=== PATIENT | male | born 1960 | race Hispanic/Latino ===

== ENCOUNTER 2020-08-18 15:14 | Emergency (ER) | payer SELFPAY ==
[2020-08-18 15:44] LABS: Absolute Lymphocytes (CBC) 3.1 K/uL (0.7-4.9); Basophils % 0.6 % (0-1.3); Hematocrit 43.7 % (39.6-49.0); Lymphocytes % 36.7 % (15.3-44.8); MPV 8.4 fL (7.6-11.3)
[2020-08-18] MEDS ORDERED: MORPHINE 4 MG/ML SYR ONE (15:50)
[2020-08-18] MEDS ORDERED: ONDANSETRON 4 MG/2 ML VIAL ONE (15:51)
[2020-08-18] MEDS ORDERED: TETANUS & DIPHTHERIA TOX,ADULT 0.5 ML VIAL ONE (15:51)
[2020-08-18] MEDS ORDERED: CROTALIDAE ANTIVENIM 1 GM VIAL IV ONE (15:52)
[2020-08-18] MEDS ORDERED: CEFAZOLIN/SWI 1gm 1 GM/10 ML SYR ONE (15:52)
[2020-08-18] MEDS ORDERED: NA CHLORIDE 0.9% 1,000 ML ONE (15:52)
[2020-08-18 16:02] LABS: ALT/SGPT 63 U/L (12-78); AST/SGOT 30 U/L (15-37); Albumin 4.5 g/dL (3.4-5.0); Alkaline Phosphatase 78 U/L (45-117); BUN Blood Urea Nitrogen 25 mg/dL (7-18); Bicarbonate 21 mmol/L (21-32); Bilirubin Direct 0.2 mg/dL (0-0.2); Bilirubin Total 0.4 mg/dL (0.2-1.0); Glucose Level 112 mg/dL (74-106); Magnesium 2.2 mg/dL (1.8-2.4); NT PRO-BNP 125 pg/mL (<125); Potassium 3.6 mmol/L (3.5-5.1); Protein, Total 8.4 g/dL (6.4-8.2); Sodium Level 142 mmol/L (136-145); Troponin (Emerg Dept Use Only) < 0.02 ng/mL (0.0-0.045)
[2020-08-18] MEDS ORDERED: NA CHLORIDE 0.9% 250 ML ONE (16:06)
--- NOTE | 2020-08-18 16:13 | RAD REPORT ---
EXAM DESCRIPTION: RAD - Hand Right 3 View - 08/18/2020 4:08 pm CLINICAL HISTORY: PAIN COMPARISON: No comparisons FINDINGS: Moderate soft tissue swelling is seen about the hand. No fracture, dislocation or radiopaq ue foreign body.
--- NOTE | 2020-08-18 16:13 | RAD REPORT ---
EXAM DESCRIPTION: RAD - Chest Single View - 08/18/2020 4:08 pm CLINICAL HISTORY: COUGH Chest pain. COMPARISON: No comparisons FINDINGS: Portable technique limits examination quality. The lungs are grossly clear. The heart is normal in size. No displaced fractures. IMPRESSION: No acute intrathoracic process suspected.
--- NOTE | 2020-08-18 16:15 | EDPHYS ---
Physician Documentation [facility] Name: Jesse Pillai Age: 60 yrs Sex: Male : 1960 Arrival Date: 08/18/2020 Time: 15:15 Bed 4 Private MD: ED Physician Maximo Vazquez HPI: 08/18 16:05 This 60 yrs old Male presents to ER via Unassigned with complaints of Snake tito bite. 16:05 The patient was bitten on the dorsal aspect of proximal phalanx of right middle finger. tito Onset: The symptoms/episode began/occurred just prior to arrival. Animal information: The snake had the markings of a copperhead snake. Secondary to the bite the patient reports erythema, pain, swelling. Associated signs and symptoms: Pertinent positives: swelling at site. Severity of symptoms: At their worst the symptoms were moderate. The patient has not experienced similar symptoms in the past. Historical: - Allergies: 15:20 No Known Allergies; jl7 - Home Meds: 15:20 None [Active]; jl7 - PMHx: 15:20 None; jl7 - PSHx: 15:20 None; jl7 - Immunization history:: Adult Immunizations not up to date. - Social history:: Smoking status: Patient denies any tobacco usage or history of. - Family history:: not pertinent. ROS: 16:05 Constitutional: Negative for fever, chills, and weight loss, Eyes: Negative for injury, tito pain, redness, and discharge, ENT: Negative for injury, pain, and discharge, Neck: Negative for injury, pain, and swelling, Cardiovascular: Negative for chest pain, palpitations, and edema, Respiratory: Negative for shortness of breath, cough, wheezing, and pleuritic chest pain, Abdomen/GI: Negative for abdominal pain, nausea, vomiting, diarrhea, and constipation, Back: Negative for injury and pain, : Negative for injury, bleeding, discharge, and swelling, Skin: Negative for injury, rash, and discoloration, Neuro: Negative for headache, weakness, numbness, tingling, and seizure, Psych: Negative for depression, anxiety, suicide ideation, homicidal ideation, and hallucinations, Allergy/Immunology: Negative for hives, rash, and allergies, Endocrine: Negative for neck swelling, polydipsia, polyuria, polyphagia, and marked weight changes, Hematologic/Lymphatic: Negative for swollen nodes, abnormal bleeding, and unusual bruising. 16:05 MS/extremity: Positive for decreased range of motion, pain, swelling, tenderness, warmth, of the dorsal aspect of proximal phalanx of right middle finger and dorsum of right hand. Exam: 16:05 Constitutional: This is a well developed, well nourished patient who is awake, alert, tito and in no acute distress. Head/Face: Normocephalic, atraumatic. Eyes: Pupils equal round and reactive to light, extra-ocular motions intact. Lids and lashes normal. Conjunctiva and sclera are non-icteric and not injected. Cornea within normal limits. Periorbital areas with no swelling, redness, or edema. ENT: Nares patent. No nasal discharge, no septal abnormalities noted. Tympanic membranes are normal and external auditory canals are clear. Oropharynx with no redness, swelling, or masses, exudates, or evidence of obstruction, uvula midline. Mucous membranes moist. Neck: Trachea midline, no thyromegaly or masses palpated, and no cervical lymphadenopathy. Supple, full range of motion without nuchal rigidity, or vertebral point tenderness. No Meningismus. Chest/axilla: Normal chest wall appearance and motion. Nontender with no deformity. No lesions are appreciated. Cardiovascular: Regular rate and rhythm with a normal S1 and S2. No gallops, murmurs, or rubs. Normal PMI, no JVD. No pulse deficits. Respiratory: Lungs have equal breath sounds bilaterally, clear to auscultation and percussion. No rales, rhonchi or wheezes noted. No increased work of breathing, no retractions or nasal flaring. Abdomen/GI: Soft, non-tender, with normal bowel sounds. No distension or tympany. No guarding or rebound. No evidence of tenderness throughout. Back: No spinal tenderness. No costovertebral tenderness. Full range of motion. Male : Normal genitalia with no discharge or lesions. Skin: Warm, dry with normal turgor. Normal color with no rashes, no lesions, and no evidence of cellulitis. Neuro: Awake and alert, GCS 15, oriented to person, place, time, and situation. Cranial nerves II-XII grossly intact. Motor strength 5/5 in all extremities. Sensory grossly intact. Cerebellar exam normal. Normal gait. Psych: Awake, alert, with orientation to person, place and time. Behavior, mood, and affect are within normal limits. 16:05 Musculoskeletal/extremity: Extremities: grossly normal except: decreased ROM, ecchymosis, pain, swelling, tenderness. Vital Signs: 15:20 BP 162 / 100; Pulse 111; Resp 24 S; Temp 98.1(O); Pulse Ox 98% on R/A; jl7 16:00 BP 153 / 100; Pulse 94; Resp 15; Pulse Ox 99% ; jl7 16:30 BP 160 / 96; Pulse 83; Resp 19; Pulse Ox 99% ; jl7 17:00 BP 157 / 108; Pulse 85; Resp 17; Pulse Ox 100% ; jl7 17:30 BP 167 / 109; Pulse 89; Resp 17; Pulse Ox 100% ; jl7 MDM: 15:18 Patient medically screened. tito 16:10 Differential diagnosis: bite. Data reviewed: vital signs, nurses notes, lab test [facility] result(s), EKG, radiologic studies, plain films. 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 Test interpretation: by ED physician or midlevel provider: ECG, plain radiologic studies. Counseling: I had a detailed discussion with the patient and/or guardian regarding: the historical points, exam findings, and any diagnostic results supporting the discharge/admit diagnosis, lab results, radiology results, the need to transfer to another facility, for higher level of care, [facility] does not immediately have the required specialist. 08/18 15:19 Order name: Basic Metabolic Panel [facility] 08/18 15:19 Order name: CBC with Diff [facility] 08/18 15:19 Order name: LFT's; Complete Time: 16:54 [facility] 08/18 15:19 Order name: Magnesium; Complete Time: 16:54 [facility] 08/18 15:19 Order name: NT PRO-BNP; Complete Time: 16:54 [facility] 08/18 15:19 Order name: PT-INR; Complete Time: 16:54 [facility] 08/18 15:19 Order name: Troponin (emerg Dept Use Only); Complete Time: 16:54 [facility] 08/18 15:19 Order name: XRAY Chest (1 view); Complete Time: 16:54 [facility] 08/18 15:19 Order name: Ptt, Activated; Complete Time: 16:54 [facility] 08/18 15:19 Order name: Hand Right 3 View XRAY; Complete Time: 16:54 [facility] 08/18 15:19 Order name: Fibrinogen; Complete Time: 16:54 [facility] 08/18 15:20 Order name: Basic Metabolic Panel; Complete Time: 16:54 [facility] 08/18 15:20 Order name: CBC with Automated Diff; Complete Time: 16:54 [facility] 08/18 15:19 Order name: EKG; Complete Time: 15:21 [facility] 08/18 15:19 Order name: Cardiac monitoring; Complete Time: 16:58 [facility] 08/18 15:19 Order name: EKG - Nurse/Tech; Complete Time: 16:58 [facility] 08/18 15:19 Order name: IV Saline Lock; Complete Time: 16:58 [facility] 08/18 15:19 Order name: Labs collected and sent; Complete Time: 16:58 [facility] 08/18 15:19 Order name: O2 Per Protocol; Complete Time: 16:58 [facility] 08/18 15:19 Order name: O2 Sat Monitoring; Complete Time: 16:58 [facility] Administered Medications: 15:40 Drug: NS 0.9% 1000 ml Route: IV; Rate: 125 ml/hr; Site: left forearm; jl7 17:50 Follow up: IV Status: Infusion continued upon transfer 7 15:43 Drug: Zofran (Ondansetron) 4 mg Route: IVP; Site: left forearm; jl7 17:51 Follow up: Response: No adverse reaction 7 15:45 Drug: morphine 4 mg Route: IVP; Site: left forearm; jl7 16:00 Follow up: Response: No adverse reaction; Pain is decreased jl7 16:42 Drug: CroFab 6 vials Route: IV; Rate: per protocol; Site: left forearm; jl7 17:51 Follow up: IV Status: Infusion continued upon transfer jl7 16:44 Drug: Tetanus-Diphtheria Toxoid Adult 0.5 ml {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 Exp: jl7 12/22/2021. Lot #: [id number]. } Route: IM; Site: left deltoid; 17:51 Follow up: Response: No adverse reaction jl7 17:51 Drug: Ancef 1 grams Route: IVPB; Site: left forearm; jl7 17:51 Follow up: Response: No adverse reaction; IV Status: Completed infusion jl7 Disposition: 08/18/20 16:15 Transfer ordered to [facility]. Diagnosis is Toxic effect of snake venom - grade1-2, copperhead. - Reason for transfer: Higher level of care. - Accepting physician is to [facility]. - Condition is Fair. - Problem is new. - Symptoms have improved. Signatures: Dispatcher [employer] EDMaximo Cuevas MD MD cha Williams, Irene, RN RN iw Leal, Jahala, RN RN jl7 Corrections: (The following items were deleted from the chart) 17:57 16:15 08/18/2020 16:15 Transfer ordered to [facility]. Diagnosis is Toxic iw effect of snake venom - grade1-2, copperhead. Reason for transfer: Higher level of care. Accepting physician is to [facility]. Condition is Fair. Problem is new. Symptoms have improved. tito
[2020-08-18 16:23] LABS: Protime INR 0.93
[2020-08-18] MEDS ORDERED: NA CHLORIDE 0.9% 100 ML IV ONE (17:57)
--- NOTE | 2020-08-18 17:58 | ER ---
Nurse's Notes [facility] Name: Jesse Pillai Age: 60 yrs Sex: Male : 1960 Arrival Date: 08/18/2020 Time: 15:15 Bed 4 Private MD: Diagnosis: Toxic effect of snake yazhl--6, copperhead Presentation: 08/18 15:20 Chief complaint: Patient states: Bit by copperhead on right hand about 1500 today. jl7 15:20 Method Of Arrival: Ambulatory jl7 15:20 Coronavirus screen: Client denies travel out of the [place] in the last 14 days. At this jl7 time, the client does not indicate any symptoms associated with coronavirus-19. Ebola Screen: No symptoms or risks identified at this time. Initial Sepsis Screen: Does the patient meet any 2 criteria? No. Patient's initial sepsis screen is negative. Does the patient have a suspected source of infection? No. Patient's initial sepsis screen is negative. Risk Assessment: Do you want to hurt yourself or someone else? Patient reports no desire to harm self or others. Onset of symptoms was August 18, 2020 at 15:00. Care prior to arrival: None. Transition of care: patient was not received from another setting of care. 15:20 Acuity: SAMSON 2 jl7 Triage Assessment: 15:20 Bite description: bite sustained to right hand is from animal, was sustained less than jl7 30 minutes ago. by a snake, animal information: vaccination(s) is unknown, was sustained less than 30 minutes ago. General: Appears in no apparent distress. uncomfortable, Behavior is cooperative, anxious. Pain: Complains of pain in right hand. Neuro: Level of Consciousness is awake, alert, obeys commands, Oriented to person, place, time, situation. Cardiovascular: Patient's skin is warm and dry. Respiratory: Airway is patent Respiratory effort is even, unlabored, Respiratory pattern is symmetrical, tachypnea. GI: No signs and/or symptoms were reported involving the gastrointestinal system. : No signs and/or symptoms were reported regarding the genitourinary system. Derm: Skin is pink, warm \T\ dry. Musculoskeletal: Swelling present in right hand. Historical: - Allergies: 15:20 No Known Allergies; jl7 - Home Meds: 15:20 None [Active]; jl7 - PMHx: 15:20 None; jl7 - PSHx: 15:20 None; jl7 - Immunization history:: Adult Immunizations not up to date. - Social history:: Smoking status: Patient denies any tobacco usage or history of. - Family history:: not pertinent. Screenin:20 Abuse screen: Denies threats or abuse. Denies injuries from another. Nutritional jl7 screening: No deficits noted. Tuberculosis screening: No symptoms or risk factors identified. Fall Risk IV access (20 points). Total Cheney Fall Scale indicates No Risk (0-24 pts). 17:57 Abuse screen: Denies threats or abuse. Denies injuries from another. Nutritional iw screening: No deficits noted. Tuberculosis screening: No symptoms or risk factors identified. Fall Risk None identified. Assessment: 15:20 General: see triage assessment. jl7 16:54 Reassessment: swelling noted to increase past the wrist. jl7 16:54 Derm: Skin is intact. jl7 Vital Signs: 15:20 BP 162 / 100; Pulse 111; Resp 24 S; Temp 98.1(O); Pulse Ox 98% on R/A; jl7 16:00 BP 153 / 100; Pulse 94; Resp 15; Pulse Ox 99% ; jl7 16:30 BP 160 / 96; Pulse 83; Resp 19; Pulse Ox 99% ; jl7 17:00 BP 157 / 108; Pulse 85; Resp 17; Pulse Ox 100% ; jl7 17:30 BP 167 / 109; Pulse 89; Resp 17; Pulse Ox 100% ; jl7 ED Course: 15:15 Patient arrived in ED. mr 15:17 Maximo Vazquez MD is Attending Physician. tito 15:20 Arm band placed on right wrist. jl7 15:20 Patient has correct armband on for positive identification. iw 15:22 Edith Heard, ARIANA is Primary Nurse. jl7 15:35 Initial lab(s) drawn, by me, sent to lab. EKG done, by ED staff, reviewed by Maximo Vazquez MD. Inserted saline lock: 20 gauge in left forearm, using aseptic technique. Blood collected. 16:[address] Vazquez with Radha Alvarado from the [facility]. 16:09 XRAY Chest (1 view) In Process Unspecified. EDMS 16:09 Hand Right 3 View XRAY In Process Unspecified. EDMS 16:[address] Tang the emergency room doctor weatherization technician for [facility] with eb Dr. Vazquez for patient transfer consultation. 16:11 administrative approval given by Radha Alvarado / patient has been accepted to eb [facility] ER/ Dr. Tang has accepted to the transfer center/ report to be called to [phone]. 16:46 Triage completed. jl7 17:57 No provider procedures requiring assistance completed. Patient transferred, IV remains iw in place. Administered Medications: 15:40 Drug: NS 0.9% 1000 ml Route: IV; Rate: 125 ml/hr; Site: left forearm; jl7 17:50 Follow up: IV Status: Infusion continued upon transfer jl7 15:43 Drug: Zofran (Ondansetron) 4 mg Route: IVP; Site: left forearm; jl7 17:51 Follow up: Response: No adverse reaction jl7 15:45 Drug: morphine 4 mg Route: IVP; Site: left forearm; jl7 16:00 Follow up: Response: No adverse reaction; Pain is decreased jl7 16:42 Drug: CroFab 6 vials Route: IV; Rate: per protocol; Site: left forearm; jl7 17:51 Follow up: IV Status: Infusion continued upon transfer jl7 16:44 Drug: Tetanus-Diphtheria Toxoid Adult 0.5 ml {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 Exp: jl7 12/22/2021. Lot #: [id number]. } Route: IM; Site: left deltoid; 17:51 Follow up: Response: No adverse reaction jl7 17:51 Drug: Ancef 1 grams Route: IVPB; Site: left forearm; jl7 17:51 Follow up: Response: No adverse reaction; IV Status: Completed infusion jl7 Outcome: 16:15 ER care complete, transfer ordered by MD. francis 17:57 Transferred by ground EMS to [facility], Transfer form completed. X-rays sent iw w/ patient. 17:57 Condition: stable 17:57 Discharge instructions given to patient, family, Instructed on the need for transfer, Demonstrated understanding of instructions. 17:57 Patient left the ED. iw Signatures: Dispatcher [employer] Maximo Sanchez MD MD cha Rivera, Layla Linares, RN RN iw Edith Heard RN RN jl7 Karla Romero
[2020-08-18 18:34] VITALS: TEMP 98.1
[2020-08-18 18:38] VITALS: O2SAT 100
[2020-08-18 18:40] VITALS: BP 167/109
--- NOTE | 2020-08-19 07:24 | EKG ---
Test Date: 2020-08-18 Test Time: 15:46:00 Dust Handler: DAYRON MEASUREMENT RESULTS: Intervals: Rate: 92 SC: 160 QRSD: 80 QT: 362 QTc: 447 Molina: P: 59 SC: 160 QRS: -28 T: 48 INTERPRETIVE STATEMENTS: Normal sinus rhythm Possible Left atrial enlargement Left ventricular hypertrophy Abnormal ECG No previous ECG available for comparison Electronically Signed On 08-19-20 07:23:10 FORESTRY AND WILDLIFE MANAGER by Garrett Pitts
== END 2020-08-18 17:57 | disposition short-term general hospital (02) ==
LOC: ER 15:14
DX: T63.091A Toxic effect of venom of other snake, accidental (unintentional), initial encounter (principal); Z23 Encounter for immunization
CPT/HCPCS: 36415; 71045; 80048; 80076; 83735; 83880; 84484; 85025; 85384; 85610; 85730; 90471; 90714; 93005; 96361; 96365; 96375; 99285; J0690; J0840; J2405; J7030; J7050